=== PATIENT | female | born 1960 | race Caucasian/White ===

== ENCOUNTER 2018-09-07 05:34 | Day surgery (SDC) | payer OTHER ==
[2018-09-07] MEDS: ACETAMINOPHEN 500 MG TAB PO (06:44)
[2018-09-07] MEDS ORDERED: BUPIVACAINE 0.25% (MPF) 30 ML INJ (06:59)
[2018-09-07] MEDS ORDERED: ROCURONIUM 50 MG INJ (07:12)
[2018-09-07] MEDS ORDERED: FAMOTIDINE 20 MG INJ (07:12)
[2018-09-07] MEDS ORDERED: ONDANSETRON 4 MG INJ (07:12)
[2018-09-07] MEDS ORDERED: FENTAnyl 50 MCG/ML VIAL (07:12)
[2018-09-07] MEDS ORDERED: CEFAZOLIN 1 GM INJ (07:12)
[2018-09-07] MEDS ORDERED: PROPOFOL 20 ML (07:12)
[2018-09-07] MEDS ORDERED: ALBUTEROL 0.083% (NEB) 2.5 MG/3 ML AMP HHN (07:30)
[2018-09-07] MEDS ORDERED: OXYCODONE/ACETAMINOPHEN (5/325) TAB PO ×4 (07:30→08:00)
[2018-09-07] MEDS ORDERED: FENTAnyl 50 MCG/ML VIAL IV ×2 (07:30)
[2018-09-07] MEDS ORDERED: MEPERIDINE 25 MG INJ IV (07:30)
[2018-09-07] MEDS ORDERED: LABETALOL HCL 20MG INJ IV (07:30)
[2018-09-07] MEDS ORDERED: ONDANSETRON 4 MG INJ IV ×2 (07:30→08:00)
[2018-09-07] MEDS ORDERED: HYDROmorphONE 1 MG/5 ML IV SYRINGE IV ×3 (07:30)
[2018-09-07] MEDS ORDERED: morphine 2 MG INJ IV ×3 (07:30→08:00)
[2018-09-07] MEDS ORDERED: DIPHENHYDRAMINE 50 MG INJ IV (07:30)
[2018-09-07] MEDS ORDERED: NEOSTIGMINE 3 MG/3 ML SYRINGE (07:34)
[2018-09-07] MEDS ORDERED: GLYCOPYRROLATE 0.4 MG INJ (07:34)
[2018-09-07] MEDS ORDERED: METOCLOPRAMIDE 10 MG INJ (07:34)
[2018-09-07] MEDS: BUPIVACAINE 0.25% (STERILE-PAK) 30 ML INJ INJ (07:52)
== END 2018-09-07 09:20 | disposition home or self-care (01) ==
LOC: SDS 05:34
DX: D17.1 Benign lipomatous neoplasm of skin and subcutaneous tissue of trunk (principal)
CPT/HCPCS: 21931; 84703; 88304